=== PATIENT | female | born 1965 | race Hispanic/Latino ===

== ENCOUNTER 2022-04-01 11:13 | Observation (INO) | payer BC ==
[2022-04-01] VITALS (19 sets, daily range): BP systolic 108–166; BP diastolic 62–94
[~2022-04-01] VITALS: Ht 149.9 cm; Wt 43.9 kg
[2022-04-01 11:38] LABS: BASOPHILS % (AUTO) 0.4 % (0.0-5.0); HEMATOCRIT 37.7 % (36-48); MEAN CORPUSCULAR HEMOGLOBIN 30.6 pg (27.0-33.0); MEAN CORPUSCULAR HGB CONC 33.7 g/dL (32.0-36.0); MEAN CORPUSCULAR VOLUME 90.8 fL (79-99); MONOCYTES % (AUTO) 3.2 % (3.0-13.0); NEUTROPHILS % (AUTO) 87.9 % (40.0-77.0); PLATELET COUNT (AUTO) 279 K/uL (130-400); RED BLOOD CELL COUNT(AUTO) 4.15 MIL/uL (4.00-5.50); WHITE BLOOD COUNT (AUTO) 15.1 K/uL (4.8-10.8)
[2022-04-01 11:46] LABS: CREATININE 0.7 mg/dL (0.5-1.5); POTASSIUM 3.8 mmol/L (3.5-5.1)
[2022-04-01] MEDS ORDERED: ONDANSETRON 4MG INJ ONE (11:48)
[2022-04-01] MEDS ORDERED: MORPHINE 2 MG SYG ONE (11:48)
[2022-04-01 11:50] LABS: ALBUMIN 4.3 g/dL (3.5-5.0); TOTAL PROTEIN, SERUM 7.7 g/dL (6.0-8.3)
[2022-04-01] MEDS ORDERED: MORPHINE 2 MG SYG IVP ONE (12:00)
[2022-04-01] MEDS ORDERED: ONDANSETRON 4MG INJ IVP ONE (12:00)
[2022-04-01 12:15] LABS: APPEARANCE,URINE CLOUDY (CLEAR); BILIRUBIN,URINE NEGATIVE (NEGATIVE); COLOR,URINE YELLOW (YELLOW); GLUCOSE, URINE (UA) NEGATIVE (NEGATIVE); KETONES,URINE 20 mg/dL (NEGATIVE); LEUKOCYTE ESTERASE ,URINE NEGATIVE Leu/uL (NEGATIVE); NITRATE,URINE NEGATIVE (NEGATIVE); OCCULT BLOOD,URINE NEGATIVE (NEGATIVE); PH,URINE 5.5 (5.0-8.0); PROTEIN,URINE 10 mg/dL (NEGATIVE); UROBILINOGEN,URINE 0.2 mg/dL (0.2-1.0)
[2022-04-01 12:41] LABS: BACTERIA,URINE Rare /HPF (None Seen); RBC,URINE None Seen /HPF (0-1); WBC,URINE None Seen /HPF (0-1)
[2022-04-01 12:42] LABS: MUCUS,URINE Moderate LPF (None Seen)
[2022-04-01] MEDS ORDERED: ZOSYN 3.375GM +NS 50ML IV SCH (13:00)
[2022-04-01] MEDS: ZOSYN 3.375GM +NS 50ML IV SCH ×2 (13:30→20:13)
[2022-04-01] MEDS ORDERED: LABETALOL 20MG SYG IV PRN (13:30)
[2022-04-01] MEDS ORDERED: HYDRALAZINE 20MG/ML VIAL IV PRN (13:30)
[2022-04-01] MEDS ORDERED: ONDANSETRON 4MG INJ IVP PRN (13:30)
[2022-04-01] MEDS ORDERED: LACTULOSE 20 GM/30 ML UDCUP PO PRN (13:30)
[2022-04-01] MEDS ORDERED: ACETAMINOPHEN 325 MG TAB PO PRN (13:30)
[2022-04-01] MEDS: LACTATED RINGERS 1000ML 1,000 ML IV SCH ×3 (13:51→19:00)
[2022-04-01] MEDS ORDERED: IPRATROPIUM/ALBUTEROL SULFATE 3 ML SOLUTION IH SCH (14:00)
[2022-04-01] MEDS ORDERED: BUPIVACAINE/PF 0.25% 30ML VIAL IJ ONE (16:04)
[2022-04-01] MEDS: INSULIN HUMULIN R 100 UNIT/ML 3ML SQ SCH ×2 (16:30→20:43)
[2022-04-01] MEDS ORDERED: MIDAZOLAM HCL 1 MG/ML 2ML VIAL ONE (18:01)
[2022-04-01] MEDS ORDERED: PROPOFOL 10 MG/ML 20ML VIAL IV ONE (18:01)
[2022-04-01] MEDS ORDERED: ROCURONIUM 10MG/1ML SYR 10 MG/ML ML ONE (18:02)
[2022-04-01] MEDS ORDERED: FENTANYL CITRATE PF 50 MCG/1 ML 2ML VIAL ONE (18:02)
[2022-04-01] MEDS ORDERED: NEOSTIGMINE 5MG/5ML SYR IV ONE (18:46)
[2022-04-01] MEDS ORDERED: MEPERIDINE-PF 25 MG/ML SYG ONE (19:07)
[2022-04-01] MEDS: FAMOTIDINE 20MG VIAL IV SCH (20:13)
[2022-04-02] VITALS (8 sets, daily range): BP systolic 98–163; BP diastolic 62–89
[2022-04-02] MEDS: HYDROMORPHONE 1 MG INJ IVP PRN ×3 (00:13→11:18)
[2022-04-02] MEDS: LACTATED RINGERS 1000ML 1,000 ML IV SCH ×3 (01:31→20:58)
[2022-04-02] MEDS: ZOSYN 3.375GM +NS 50ML IV SCH ×3 (04:32→20:58)
[2022-04-02 05:12] LABS: BASOPHILS % (AUTO) 0.3 % (0.0-5.0); EOSINOPHILS % (AUTO) 0.2 % (0.0-8.0); HEMATOCRIT 34.9 % (36-48); LYMPHOCYTES % (AUTO) 11.7 % (21.0-51.0); MEAN CORPUSCULAR HEMOGLOBIN 30.4 pg (27.0-33.0); MEAN CORPUSCULAR HGB CONC 33.2 g/dL (32.0-36.0); MEAN CORPUSCULAR VOLUME 91.6 fL (79-99); MONOCYTES % (AUTO) 6.1 % (3.0-13.0); NEUTROPHILS % (AUTO) 81.3 % (40.0-77.0); PLATELET COUNT (AUTO) 214 K/uL (130-400); RED BLOOD CELL COUNT(AUTO) 3.81 MIL/uL (4.00-5.50); RED CELL DISTRIBUTION WIDTH 12.3 % (11.0-15.5); WHITE BLOOD COUNT (AUTO) 11.3 K/uL (4.8-10.8)
[2022-04-02 05:38] LABS: CREATININE 0.6 mg/dL (0.5-1.5); MAGNESIUM 1.7 mg/dL (1.80-2.40); PHOSPHORUS 4.6 mg/dL (2.5-4.9); POTASSIUM 3.8 mmol/L (3.5-5.1); THYROID STIMULATING HORMONE 0.54 uIU/mL (0.36-3.74)
[2022-04-02] MEDS: INSULIN HUMULIN R 100 UNIT/ML 3ML SQ SCH ×4 (05:46→21:00)
[2022-04-02] MEDS: FAMOTIDINE 20MG VIAL IV SCH ×2 (07:55→20:58)
[2022-04-02] MEDS ORDERED: HYDROCORTISONE 25 MG SUPPOSITORY PR PRN (20:30)
[2022-04-03] VITALS: BP 93/56
[2022-04-03 04:00] VITALS: BP 137/79
[2022-04-03] MEDS: ZOSYN 3.375GM +NS 50ML IV SCH (05:10)
[2022-04-03] MEDS: INSULIN HUMULIN R 100 UNIT/ML 3ML SQ SCH (05:13)
[2022-04-03 05:35] LABS: HEMATOCRIT 34.2 % (36-48); MEAN CORPUSCULAR HEMOGLOBIN 30.9 pg (27.0-33.0); MEAN CORPUSCULAR VOLUME 93.4 fL (79-99); RED BLOOD CELL COUNT(AUTO) 3.66 MIL/uL (4.00-5.50); RED CELL DISTRIBUTION WIDTH 12.5 % (11.0-15.5); WHITE BLOOD COUNT (AUTO) 6.4 K/uL (4.8-10.8)
[2022-04-03 05:52] LABS: ALBUMIN 3.2 g/dL (3.5-5.0); CREATININE 0.7 mg/dL (0.5-1.5); POTASSIUM 3.4 mmol/L (3.5-5.1); TOTAL PROTEIN, SERUM 6.4 g/dL (6.0-8.3)
[2022-04-03 08:00] VITALS: BP 149/99
[2022-04-03] MEDS: FAMOTIDINE 20MG VIAL IV SCH (09:27)
[2022-04-03] MEDS ORDERED: DOCU-116 PO (10:42)
== END 2022-04-03 12:05 | disposition home or self-care (01) ==
LOC: EDH 11:13 → EDHIP 13:20 → 3AH 15:00
PROVIDERS: ADMIT Internal Medicine; ATTEND Internal Medicine
DX: K35.80 Unspecified acute appendicitis (principal); Z20.822 Contact with and (suspected) exposure to COVID-19; D72.829 Elevated white blood cell count, unspecified; H40.9 Unspecified glaucoma; D25.9 Leiomyoma of uterus, unspecified; K38.1 Appendicular concretions; K80.20 Calculus of gallbladder without cholecystitis without obstruction; M47.815 Spondylosis without myelopathy or radiculopathy, thoracolumbar region; Z79.899 Other long term (current) drug therapy; Z98.890 Other specified postprocedural states
CPT/HCPCS: 44970; 96365; 96366 ×3; 96375 ×2; 99284; 80053 ×2; 83690; 85025 ×2; 82948 ×5; 81001; 81025; 36415 ×3; 87635; 74176; 94664; 96376 ×2; 84443; 83735 ×2; 84100; 80048; 97161; 84145; 85027; G0378 ×44; J7030; J7120 ×4; J3490 ×5; J3010; J2710; J2250; J2704; J2405 ×2; J2543 ×6; J2175; C1769 ×3; A4649 ×4; J1170 ×3